=== PATIENT | female | born 1930 | race Caucasian/White ===

== ENCOUNTER 2018-01-21 09:39 | Outpatient (CLI) | payer OTHER | END 2018-01-21 11:29 | disposition home or self-care (01) | LOC: LAB 09:39 | DX: E55.9 Vitamin D deficiency, unspecified (principal); M81.8 Other osteoporosis without current pathological fracture; E88.89 Other specified metabolic disorders; E21.2 Other hyperparathyroidism; M89.8X8 Other specified disorders of bone, other site; M85.89 Other specified disorders of bone density and structure, multiple sites; E21.3 Hyperparathyroidism, unspecified; E56.1 Deficiency of vitamin K; E03.8 Other specified hypothyroidism; S90.32XA Contusion of left foot, initial encounter; E83.42 Hypomagnesemia ==

== ENCOUNTER → 2018-01-21 | Outpatient (CLI) | payer OTHER | END | disposition home or self-care (01) | LOC: NUCLEAR 10:38 | DX: M81.0 Age-related osteoporosis without current pathological fracture (principal) ==